=== PATIENT | female | born 1970 | race Caucasian/White ===

== ENCOUNTER 2022-03-04 12:50 | Emergency (ER) | payer SELFPAY ==
[~2022-03-04] VITALS: Ht 170.2 cm; Wt 82.0 kg
[2022-03-04] MEDS ORDERED: ONDANSETRON HCL 4MG/2ML INJ IV STA (13:06)
[2022-03-04] MEDS ORDERED: SODIUM CHLORIDE 0.9% 1,000 ML IV ONE (13:15)
[2022-03-04 13:54] LABS: EOSINOPHILS % 5.9 % (0.0-5.0); HEMATOCRIT. 24.1 % (36.0-48.0); HEMOGLOBIN. 7.7 g/dL (12.0-16.0); LYMPHOCYTES % 23.5 % (20.0-50.0); MEAN CORPUSCULAR HEMOGLOBIN 28.2 pg (28.0-32.0); MEAN CORPUSCULAR VOLUME 88.5 fL (81.0-99.0); MEAN PLATELET VOLUME 8.4 fl (7.4-10.4); MONOCYTES % 7.3 % (2.0-8.0); NEUTROPHILS % 62.3 % (40.0-76.0); PLATELET 276 x1000/uL (130-400); RED BLOOD CELL COUNT 2.73 mill/uL (4.2-5.4)
[2022-03-04 14:07] LABS: CHLORIDE 105 mEq/L (98-107)
[2022-03-04 14:18] LABS: PLATELET ESTIMATE NORMAL
[2022-03-04 14:29] LABS: ETHANOL BLOOD 341 mg/dL
[2022-03-04 14:56] LABS: HCG SCREEN NEGATIVE
[2022-03-05 04:00] VITALS: BP 112/61
[2022-03-05] MEDS ORDERED: IBUP-2029 MT (09:08)
== END 2022-03-05 04:55 | disposition home or self-care (01) ==
LOC: ER 12:50
DX: F10.129 Alcohol abuse with intoxication, unspecified (principal); Y90.8 Blood alcohol level of 240 mg/100 ml or more; R11.0 Nausea
CPT/HCPCS: 36415; 80053; 80320; 83690; 84703; 85025; 93005; 96374; 99285; J2405; J7030; G0480

== ENCOUNTER 2022-03-05 05:10 | Emergency (ER) | payer SELFPAY ==
[~2022-03-05] VITALS: Ht 175.3 cm; Wt 100.0 kg
[2022-03-05] MEDS ORDERED: IBUP-2029 MT (09:08)
[2022-03-05 10:55] VITALS: BP 132/60
== END 2022-03-05 11:05 | disposition home or self-care (01) ==
LOC: ER 05:10
DX: S62.101A Fracture of unspecified carpal bone, right wrist, initial encounter for closed fracture (principal); X58.XXXA Exposure to other specified factors, initial encounter; Y93.89 Activity, other specified; Y92.89 Other specified places as the place of occurrence of the external cause; Y99.8 Other external cause status; E03.9 Hypothyroidism, unspecified
CPT/HCPCS: 29125; 73110; 73630; 81025; 99284; A4565